=== PATIENT | female | born 1990 | race Caucasian/White ===

== ENCOUNTER 2020-01-07 06:57 | Day surgery (SDC) | payer OTHER, BC ==
[~2020-01-07] VITALS: Ht 175.3 cm; Wt 126.7 kg
[~2020-01-07 06:57] MED LIST: CEPH500 PO; DIPH50 PO; IBUP800 PO; IRON 100 PLUS1 EACH PO; METPRE4DP PO; PRENATAL VITAM1 EAC2 PO; Pepcid40 MG PO; Vibramycin100 MG PO
--- NOTE | 2020-01-07 10:31 | NUR ---
Dressing to procedure site clean, dry, intact with no visible drainage, swelling, erythema or bruising noted. WILL PROVIDE FOOD AND FLUID. PT ASKING FOR FLUIDS AND PAIN MEDS
--- NOTE | 2020-01-07 11:50 | NUR ---
LE 1100 Patient up to Ambulate independently. Gait steady. Discharge instructions reviewed with patient. Patient verbalizes understanding. Copy given to patient to take home. Dressing to procedure site clean, dry, intact with no visible drainage, swelling, erythema or bruising noted. Patient States Post-Procedure ride home has been arranged. Discharged via wheelchair to private car for ride home. ALL BELONINGS SENT HOME WITH PATIENT.
== END 2020-01-07 11:50 | disposition home or self-care (01) ==
LOC: ORSCMMR 06:57 → ORD 07:30 → ORSCMMR 07:30
PROVIDERS: Surgery
PROC: 0FT44ZZ Resection of Gallbladder, Percutaneous Endoscopic Approach (ICD-10-PCS; principal; 2020-01-07 08:30)
DX: K80.10 Calculus of gallbladder with chronic cholecystitis without obstruction (principal); Z87.891 Personal history of nicotine dependence; K21.9 Gastro-esophageal reflux disease without esophagitis; E66.01 Morbid (severe) obesity due to excess calories; Z68.41 Body mass index [BMI] 40.0-44.9, adult
CPT/HCPCS: 88304; A9270-GY; J0694; J1100; J1885; J2250; J2405; J2704; J2710; J3010; J7120

== ENCOUNTER → 2022-05-28 | Outpatient (CLI) | payer OTHER, BC ==
[2022-05-29 19:10] LABS: CHLAMYDIA TRACHOMATIS, NAA Negative (Negative)
== END | disposition home or self-care (01) ==
LOC: LAB SHORT 17:15 → LAB 17:15
PROVIDERS: Obstetrics & Gynecology
DX: Z34.81 Encounter for supervision of other normal pregnancy, first trimester (principal)
CPT/HCPCS: 87491; 87591

== ENCOUNTER → 2022-10-23 | Outpatient (CLI) | payer OTHER, BC | END | disposition home or self-care (01) | LOC: LAB SHORT 09:12 → LAB 09:12 | DX: O99.810 Abnormal glucose complicating pregnancy (principal) | CPT/HCPCS: 36415; 82947; 82951; 82952 ==

== ENCOUNTER → 2022-12-17 | Outpatient (CLI) | payer OTHER, BC | END | disposition home or self-care (01) | LOC: LAB SHORT 09:40 | DX: Z34.83 Encounter for supervision of other normal pregnancy, third trimester (principal); Z3A.36 36 weeks gestation of pregnancy | CPT/HCPCS: 87081; 87150 ==

== ENCOUNTER 2023-01-07 22:53 | Inpatient (IN) | payer OTHER, BC ==
[~2023-01-07] VITALS: Ht 175.3 cm; Wt 131.8 kg
[2023-01-08] MEDS ORDERED: FERSU300 PO (06:11)
[2023-01-08 07:44] LABS: BASOPHILS ABSOLUTE AUTO 0.03 K/mm3 (0.00-0.23); BASOPHILS PERCENT AUTO 0 % (0-2); EOSINOPHILS PERCENT AUTO 1 % (0-6); Hematocrit 32.7 % (33.0-51.0); IMMATURE GRAN ABSOLUTE AUTO 0.18 K/mm3 (0.00-0.10); IMMATURE GRAN PERCENT AUTO 1 % (0-1); LYMPHOCYTES ABSOLUTE AUTO 1.85 K/mm3 (0.84-5.20); LYMPHOCYTES PERCENT AUTO 12 % (21-46); MONOCYTES ABSOLUTE AUTO 0.78 K/mm3 (0.16-1.47); MONOCYTES PERCENT AUTO 5 % (4-13); Mean Corpuscular HGB 29.7 pg (26.0-34.0); Mean Corpuscular HGB Conc 33.6 g/dL (31.5-36.5); Mean Corpuscular Volume 88 fL (80-100); Mean Platelet Volume 12.5 fL (9.1-12.4); NEUTROPHILS ABSOLUTE AUTO 12.63 K/mm3 (1.96-9.15); NEUTROPHILS PERCENT AUTO 81 % (41-73); Platelet Count 192 K/mm3 (150-400); RDW Coefficient Variation 14.3 % (11.7-14.2); RDW Standard Deviation 45.7 fL (35.1-46.3); White Blood Cell Count 15.57 K/mm3 (4.00-11.30)
--- NOTE | 2023-01-08 13:45 | NUR ---
BABY IS SLEEPING IN [place]ILI BLANKET, WHEN YOU PUT YOUR HANDS ON HIM WRAPPED HE HAS DISTURBED AND UNDISTURBED TREMORS. HIS TONE IS A LITTLE MORE INCREASED FROM YESTERDAY. HE IS HAVING LOOSE STOOLS TODAY. WILL CONTINUE TO MONITOR,
--- NOTE | 2023-01-08 22:10 | NUR ---
DOLLY from Alfredo Good RN at 2200 assumed care of pt at this time
[2023-01-09 05:46] LABS: BASOPHILS ABSOLUTE AUTO 0.05 K/mm3 (0.00-0.23); BASOPHILS PERCENT AUTO 0 % (0-2); EOSINOPHILS PERCENT AUTO 1 % (0-6); Hematocrit 30.5 % (33.0-51.0); Hemoglobin 10.4 g/dL (11.5-16.0); IMMATURE GRAN ABSOLUTE AUTO 0.14 K/mm3 (0.00-0.10); IMMATURE GRAN PERCENT AUTO 1 % (0-1); LYMPHOCYTES ABSOLUTE AUTO 2.16 K/mm3 (0.84-5.20); LYMPHOCYTES PERCENT AUTO 13 % (21-46); MONOCYTES ABSOLUTE AUTO 0.98 K/mm3 (0.16-1.47); MONOCYTES PERCENT AUTO 6 % (4-13); Mean Corpuscular HGB 29.9 pg (26.0-34.0); Mean Corpuscular HGB Conc 34.1 g/dL (31.5-36.5); Mean Corpuscular Volume 88 fL (80-100); Mean Platelet Volume 12.3 fL (9.1-12.4); NEUTROPHILS ABSOLUTE AUTO 13.66 K/mm3 (1.96-9.15); NEUTROPHILS PERCENT AUTO 80 % (41-73); Platelet Count 180 K/mm3 (150-400); RDW Coefficient Variation 14.3 % (11.7-14.2); RDW Standard Deviation 45.6 fL (35.1-46.3); Red Blood Cell Count 3.48 M/mm3 (3.80-5.20); White Blood Cell Count 17.09 K/mm3 (4.00-11.30)
--- NOTE | 2023-01-09 18:48 | NUR ---
DISCHARGE TEACHING COMPLETED, NB BANDS MATCHED WITH MOM, NB TO DESHAWN
--- NOTE | 2023-01-09 18:53 | NUR ---
DISCHARGED TO HOME WITH BRITTNEY
== END 2023-01-09 18:50 | disposition home or self-care (01) | DRG 807 ==
LOC: BC 22:53
PROVIDERS: ADMIT Obstetrics & Gynecology
PROC: 10E0XZZ Delivery of Products of Conception, External Approach (ICD-10-PCS; principal; 2023-01-08)
PROC: 0HQ9XZZ Repair Perineum Skin, External Approach (ICD-10-PCS; 2023-01-08)
PROC: 3E0R3BZ Introduction of Anesthetic Agent into Spinal Canal, Percutaneous Approach (ICD-10-PCS; 2023-01-08)
PROC: 00HU33Z Insertion of Infusion Device into Spinal Canal, Percutaneous Approach (ICD-10-PCS; 2023-01-08)
DX: O66.0 Obstructed labor due to shoulder dystocia (principal); Z37.0 Single live birth; O99.214 Obesity complicating childbirth; O70.0 First degree perineal laceration during delivery; Z3A.39 39 weeks gestation of pregnancy; Z90.49 Acquired absence of other specified parts of digestive tract; Z87.891 Personal history of nicotine dependence; Z88.8 Allergy status to other drugs, medicaments and biological substances; Z88.2 Allergy status to sulfonamides; Z79.899 Other long term (current) drug therapy
CPT/HCPCS: 51702; 85025; 86850; 86900; 86901; A9270; C1751; J1885; J2210; J2590; J3010; J7120